=== PATIENT | female | born 1970 | race Caucasian/White ===

== ENCOUNTER 2019-02-28 17:42 | Observation (INO) ==
--- NOTE | 2019-02-28 18:07 | EKG Report ---
Test Performed on : 02/28/2019 6:01:49 PM Test Reason : ABNORMAL POTASSIUM Blood Pressure : / mmHG Vent. Rate : 067 BPM Atrial Rate : 067 BPM P-R Int : 140 ms QRS Dur : 082 ms QT Int : 446 ms P-R-T Axes : 035 -41 035 degrees QTc Int : 471 ms Normal sinus rhythm. Left axis deviation Possible Anterior infarct (cited on or before 08-JUL-2011) Abnormal ECG When compared with ECG of 14-APR-2014 15:53, No significant change was found Unconfirmed Result
[2019-02-28 18:31] LABS: BASO# 0.04 X1000 (0.0-0.2); BASO% 0.5 % (0.0-0.8); EOS# 0.19 X1000 (0.0-0.7); EOS% 2.2 % (0.0-10.0); HEMATOCRIT 44.1 % (37.0-47.0); HEMOGLOBIN 15.5 g/dL (12.0-16.0); LYMPH# 2.54 X1000 (1.2-3.4); LYMPH% 29.6 % (20.5-51.1); MCHC 35.1 g/dL (33-37); MCV 85.5 FL (81-99); MONO# 0.55 X1000 (0.11-0.59); MONO% 6.4 % (1.7-9.3); MPV 10.5 FL (7.4-10.4); NEUT# 5.26 X1000 (1.4-6.5); NEUT% 61.3 % (42.2-75.2); PLT 221 X1000 (130-400); RBC 5.16 XMIL (4.2-5.4); RDW 12.6 % (11.5-14.5); WBC 8.58 X1000 (4.8-10.8)
[2019-02-28 18:47] LABS: AGAP 12; ALB/GLOB RATIO 1.4; ALBUMIN 4.4 g/dL (3.5-5.0); ALKALINE PHOSPHATASE 62 U/L (32-104); BUN 6 mg/dL (8-22); CHLORIDE 97 mmol/L (98-107); COSMO 277; CREATININE 0.7 mg/dL (0.5-0.9); ESTIMATED GFR > 60; GLUCOSE 196 mg/dL (70-104); GOT 26 U/L (10-30); GPT 39 U/L (10-36); POTASSIUM 2.7 mmol/L (3.5-5.1); SODIUM 137 mmol/L (136-145); TCO2 28 mmol/L (25-35); TOTAL BILIRUBIN 0.49 mg/dL (0.20-1.00); TOTAL PROTEIN 7.6 g/dL (6.3-8.3)
[2019-02-28] MEDS ORDERED: ZOFRAN IV ONE (18:48)
[2019-02-28] MEDS: NS + KCL 40 MEQ 1,000 ML IV SCH (19:51)
--- NOTE | 2019-02-28 22:22 | HISTORY AND PHYSICAL ---
PRIMARY CARE PROVIDER: CHESTER Brar CHIEF COMPLAINT: Nausea, vomiting and diarrhea x1 week. HISTORY OF PRESENT ILLNESS: A 48-year-old female with a history of hypertension, diabetes mellitus type 2 and GERD, who presented to the emergency department due to the patient having nausea, vomiting and diarrhea for the past week. The patient states that she was evaluated by her primary care provider, who did labs which did show that she had a low potassium. She was told to come to the emergency department. In the ED she was evaluated. Labs were drawn again, which reconfirmed that the patient was hypokalemic. Due to her presenting symptoms, it was thought that we will place her in observation for further evaluation and management. At the time of my examination the patient denied any headache, fever, chills, chest pain, shortness of breath or any weight changes, but complained of nausea, vomiting and diarrhea, and not feeling well. PAST MEDICAL HISTORY: Includes hypertension, diabetes mellitus type 2, GERD. PAST SURGICAL HISTORY: Jefry, hysterectomy, bladder sling, breast reduction. ALLERGIES: Morphine. CURRENT MEDICATIONS: She does not recall and nursing staff will reconcile. SOCIAL HISTORY: No history of smoking, alcohol or illicit drug use. FAMILY HISTORY: No history of coronary disease. REVIEW OF SYSTEMS: Fourteen-point review of systems is as in HPI. Other systems negative. PHYSICAL EXAMINATION: GENERAL: Cooperative, friendly female. She is resting more comfortably now. VITAL SIGNS: Temperature 97.8 degrees, pulse 74, respirations 17, blood pressure 118/88. HEENT: Atraumatic, normocephalic. Extraocular movements intact. PERRLA. NECK: No masses. CHEST: Clear to auscultation. CARDIOVASCULAR: Regular rate and rhythm. ABDOMEN: Soft. Positive bowel sounds. EXTREMITIES: No edema. NEUROLOGIC: She is awake, alert, oriented x3. GENITOURINARY: No bladder distention. SKIN: Warm. LABORATORY DATA: WBC 8.58, hemoglobin 15.5, hematocrit 44.1, platelets 221,000. Sodium 137, potassium 2.7, chloride 97, CO2 is 28, BUN is 6, creatinine 0.7, glucose is 196. ASSESSMENT: A 48-year-old female with a history of hypertension, diabetes mellitus type 2, and gastroesophageal reflux disease, who had presented to the emergency department with 1-week history of having nausea, vomiting and diarrhea. She states the diarrhea was improving; however, she had laboratory studies done at her primary care provider's office which showed that she had a low potassium. She was told to come to the emergency department. In the emergency department she had repeat labs, which confirmed the patient was hypokalemic. Due to her presenting symptoms, we will place the patient for observation for further evaluation and management. 1. Nausea, vomiting and diarrhea, suspected acute gastroenteritis. 2. Hypokalemia. 3. Diabetes mellitus type 2. 4. Hypertension. PLAN: 1. We will admit the patient to the medical floor with telemetry. 2. We will continue with supportive treatment with IV fluids, antiemetics as needed. 3. If diarrhea persists, we will check stool studies. 4. We will replace her potassium and other electrolytes. 5. We will monitor blood glucose and put the patient on sliding scale insulin regimen. 6. We will monitor blood pressure closely and resume antihypertensive agent. 7. We will put the patient on DVT prophylaxis with SCDs. 8. We will continue to follow and reassess, and make further recommendation based on the patient's clinical course. cc: Newton Welch MD
[2019-03-01] MEDS: NS + KCL 40 MEQ 1,000 ML IV SCH ×2 (02:28→09:30)
[2019-03-01] MEDS: HUMULIN R SUBQ SCH ×2 (06:01→12:14)
[2019-03-01] MEDS ORDERED: SYNTHROID PO SCH (07:00)
[2019-03-01] MEDS ORDERED: PRILOSEC PO SCH (07:00)
[2019-03-01 07:51] LABS: HEMOGLOBIN A1C 8.3 % (4.8-6.0)
[2019-03-01 08:01] LABS: AGAP 8; BUN 6 mg/dL (8-22); CHLORIDE 105 mmol/L (98-107); COSMO 270; CREATININE 0.5 mg/dL (0.5-0.9); ESTIMATED GFR > 60; GLUCOSE 135 mg/dL (70-104); POTASSIUM 3.5 mmol/L (3.5-5.1); SODIUM 135 mmol/L (136-145); TCO2 22 mmol/L (25-35)
[2019-03-01] MEDS ORDERED: ZOCOR PO SCH (09:00)
[2019-03-01] MEDS ORDERED: PROTONIX PO SCH (09:00)
[2019-03-01] MEDS ORDERED: COZAAR PO SCH (09:00)
[2019-03-01] MEDS ORDERED: ADDERALL PO SCH (09:00)
[2019-03-01] MEDS ORDERED: NON-FORMULARY MED (Empagliflozin [Jardiance] 0 MG) PO SCH (09:00)
[2019-03-01 12:32] VITALS: BP 101/67
--- NOTE | 2019-03-01 17:14 | DISCHARGE SUMMARY ---
ADMISSION DATE: 02/28/2019 DISCHARGE DATE: 03/01/2019 DISCHARGE DIAGNOSES: 1. Hypokalemia. 2. Type 2 diabetes. HOSPITAL COURSE: The patient was evaluated. Her potassium was low. It actually was low as an outpatient, and she came in for evaluation of 2.7; potassium is up to 3.5. In any case she had been on Ozempic, but she has just several days of nausea and vomiting associated with it. So she had been changed to Trulicity, but somehow in the middle of that her potassium was found to be low. So she was admitted for treatment. DISCHARGE MEDICATIONS: Adderall 20. Jardiance 25. Losartan 25. Prilosec 40. Simvastatin 10. Synthroid 88 mcg. Protonix 40 b.i.d. Noah will do at 0.75. I think she may be getting the 1.5 dose. She was told to return for worsening nausea, vomiting, and consider changing over if required. We will continue to monitor closely. cc: Bro Caballero MD
[2019-03-02] MEDS ORDERED: ADDERALL PO SCH (09:00)
== END 2019-03-01 16:42 | disposition home or self-care (01) ==
LOC: ED 17:42 → SUATTDRO 22:34 → INTOOBSV 22:34 → 1N 22:34
PROVIDERS: ATTEND Internal Medicine